=== PATIENT | male | born 1965 | race Caucasian/White ===

== ENCOUNTER 2018-05-04 17:53 | Observation (INO) | payer SELFPAY ==
[2018-05-04 18:29] LABS: #Basophils 0.1 thou/uL (0.0-0.2); #Eosinphils 0.5 thou/uL (0.0-0.7); #Lymphocytes 1.8 thou/uL (1.20-3.40); #Monocytes 0.6 thou/uL (0.11-0.59); #Neutrophils 6.1 thou/uL (1.40-6.50); %Basophils 0.9 % (0.0-1.0); %Eosinophils 5.9 % (0.0-10.0); %Lymphocytes 19.6 % (21.0-51.0); %Monocytes 6.1 % (0.0-10.0); %Neutrophils 67.5 % (42.0-75.0); Hemoglobin 15.8 g/dL (14.0-18.0); Mean Corpuscular HGB CONC 34.2 g/dL (32.0-36.0); Mean Corpuscular Volume 90.5 fL (78.0-98.0); Mean Platelet Volume 7.9 fL (7.4-10.4); Platelet Count 222 thou/uL (130-400); RBC Distribution Width 12.7 % (11.5-14.5); Red Blood Cell (RBC) Count 5.11 mill/uL (4.70-6.10)
[2018-05-04 18:51] LABS: ALT (SGPT) 28 U/L (8-55); AST (SGOT) 28 U/L (5-34); Albumin 4.4 g/dL (3.5-5.0); Alkaline Phosphatase 51 U/L (40-150); Anion Gap 18 mmol/L (10-20); BUN (Urea Nitrogen) 17 mg/dL (8.4-25.7); Bilirubin, Total 0.5 mg/dL (0.2-1.2); Calc. Creatinine Clearance 0 mL/min (70-130); Calcium 9.8 mg/dL (7.8-10.44); Carbon Dioxide 20 mmol/L (22-29); Chloride 106 mmol/L (98-107); Estimated GFR-MDRD 84; Globulin 2.8 g/dL (2.4-3.5); Glucose 128 mg/dL (70-105); Potassium 3.7 mmol/L (3.5-5.1); Protein, Total 7.2 g/dL (6.0-8.3); Sodium 140 mmol/L (136-145)
[2018-05-04 18:56] LABS: CKMB 5.3 ng/mL (0-6.6); Troponin I Less than 0.010 ng/mL (< 0.028)
[2018-05-04] MEDS ORDERED: Meclizine HCl 25 MG TAB ONE ×2 (19:33)
--- NOTE | 2018-05-04 21:18 | CT ---
HEAD CT WITHOUT CONTRAST: HISTORY: Dizziness. COMPARISON: None. FINDINGS: No parenchymal hemorrhage. No extraaxial hematoma. No midline shift. Basilar cisterns are patent. Brain volume is age appropriate. Cortical ruano white matter differentiation is preserved. Ventricles and sulci are patent and symmetric. Adequate aeration of the sinuses and mastoid air cells. The calvarium is intact. IMPRESSION: No intracranial posttraumatic sequelae. POS: [facility]
[2018-05-04] MEDS ORDERED: Lorazepam 2 MG/ML VIAL ONE (21:34)
[2018-05-04] MEDS ORDERED: Ondansetron PF 4 MG/2 ML Vial ONE (22:39)
[2018-05-05 00:42] VITALS: BMI 30.9
[2018-05-05] MEDS ORDERED: Sodium Chloride 0.9% 1,000 ML IV SCH (08:00)
--- NOTE | 2018-05-05 11:04 | ULT ---
ULTRASOUND CAROTID DOPPLER STANDARD BILATERAL: HISTORY: Stroke-like symptoms. COMPARISON: None. TECHNIQUE: Real-time, ruano scale, color Doppler, and spectral analysis of the extracranial carotid and vertebral arteries was performed. Mild atherosclerotic plaque. No elevated peak systolic velocities within the internal carotid arteri es. Antegrade flow of both vertebral arteries. IMPRESSION: No hemodynamically significant stenosis. POS: [facility]
--- NOTE | 2018-05-05 13:57 | MRI ---
BRAIN MRI WITHOUT IV CONTRAST: HISTORY: A 53-year-old male with a history of vertigo with nausea and vomiting, dizziness, history of hyperten maeve and high cholesterol. FINDINGS: There is no focal mass or midline shift. No intra- or extraaxial hemorrhage. There are mild sinus m ucosal changes, particularly in the ethmoid bullae. Normal expected flow voids are present. Small p unctate left periventricular old lacunar infarct. No evidence for acute infarct. IMPRESSION: Small old left periventricular lacunar infarct. NO mass or bleed. No evidence for acute infarct. POS: [facility]
[2018-05-05] MEDS ORDERED: Meclizine HCl 25 MG TAB PO SCH (14:00)
[2018-05-05 17:08] VITALS: BP 175/91; TEMP 98.3
[2018-05-05] MEDS ORDERED: Amlodipine 5 MG TAB PO SCH (17:45)
[2018-05-05] MEDS ORDERED: Simvastatin 20 MG TAB PO SCH (17:45)
[2018-05-05] MEDS ORDERED: Labetalol 100 MG TAB PO SCH (17:45)
[2018-05-06] MEDS ORDERED: Labetalol 100 MG TAB PO SCH (09:00)
[2018-05-06] MEDS ORDERED: Amlodipine 5 MG TAB PO SCH (09:00)
--- NOTE | 2018-05-06 11:34 | SS ---
DATE OF ADMISSION: 05/04/2018 DATE OF DISCHARGE: 05/05/2018 PRIMARY CARE PHYSICIAN: Dr. Quintero at the [facility]. CONSULTATIONS: None. DISCHARGE DIAGNOSES: 1. Vertigo. 2. Hypertension. 3. Hyperlipidemia. PROCEDURES: 1. The patient had a brain CT performed, which showed no intracranial posttraumatic sequelae. 2. The patient had a brain MRI that showed a small old left periventricular lacunar infarct. No mass or bleed, no evidence for an acute infarct. 3. The patient had a Doppler of his carotids performed, which showed no hemodynamically significant stenosis. HOSPITAL COURSE: The patient presented to the emergency room for evaluation of dizziness, nausea, and vomiting. The patient reported the room was spinning. He had some light sensitivity, intermittent abdominal pain, which was exacerbated by vomiting. The patient reports that he has had similar symptoms 5 days prior to the ER visit, but relieved when he sat still. He denies any chest pain at this time or any sensory changes. Denies any focal weakness. The patient does report a history of high blood pressure and high cholesterol. The patient was given some Zofran, some Ativan, and some meclizine while he was in the emergency room and he reports that he felt much better. The patient was admitted to the observation unit for further management. He received MRI of the brain and the carotid artery Doppler, which showed no evidence of any acute process. The patient received meclizine throughout the day and states that he felt much better, was able to walk, get up, go to the bathroom without any further dizziness. The patient desired to go home, so Dr. Mckeon consulted and agreed with plan. The patient was discharged to home and recommended to have an echocardiogram done on an outpatient basis. Smoking cessation counseling was done. REVIEW OF SYSTEMS: CONSTITUTIONAL: The patient denied chills, denied fever. EYES: Denied any eye pain, eye discharge, any vision changes. ENT: Denied any rhinorrhea, sore throat. Denied any sinus tenderness. CARDIOVASCULAR: Denied any chest pain, denied any palpitations. RESPIRATORY: Denies any shortness of breath. Denied any cough. GASTROINTESTINAL: Denied nausea and vomiting. GENITOURINARY: MALE: Denied any dysuria, hematuria, or any changes in urinary output. MUSCULOSKELETAL: Denies any back pain, denies any falls, trauma, injuries. Denies any neck pain. SKIN: Denied any rash or skin changes. NEUROLOGIC: Does report some dizziness with some light sensitivity, dizziness is worse with movement. HEME/LYMPHATIC: Denies any abnormal blood clotting. PHYSICAL EXAMINATION: CONSTITUTIONAL: Patient is alert and oriented to person, place and time. VITAL SIGNS: Temperature is 98.3, pulse is 87, respirations 16, and blood pressure 165/80. HEAD: Normocephalic, atraumatic. EYES: Pupils are equally round and reactive to light. Extraocular muscles are intact. Does have some mild horizontal nystagmus. ENT: Mouth exam is normal. Mucous membranes are moist. Teeth is normal. NECK: Normal range of motion. Trachea is midline. No tenderness. RESPIRATORY: Chest, no respiratory distress. Breath sounds are clear. CARDIOVASCULAR: Normal S1, S2. No abnormal heart sounds are heard. ABDOMEN: MALE: Abdomen is nontender. Bowel sounds are heard x4. BACK: Normal inspection. Normal range of motion. No tenderness. EXTREMITIES: Upper extremities, normal range of motion. Strength is normal. Sensation is intact bilaterally. Radial pulses normal bilaterally. Lower extremity, strength is normal bilaterally. Sensation intact bilaterally. Pedal pulse equal bilaterally. NEUROLOGIC: Patient is alert to person, place, and time. Speech is normal. Cranial nerves are intact. No focal sensory or motor deficits. SKIN: Normal, dry, normal in color. PSYCHIATRIC: Has normal affect. IMAGING DATA: EKG done in the emergency room shows a normal sinus rhythm beats per minute is 83. ST segments are normal, axis is normal. PAST MEDICAL HISTORY: Includes hyperlipidemia, high cholesterol, has had 2 cardiac stents, has had bilateral hip replacement. PAST SURGICAL HISTORY: Bilateral hip replacement. PSYCHIATRIC HISTORY: Anxiety, depression. SOCIAL HISTORY: The patient reports chronic alcoholism; however, he has been sober since October. The patient is a former drug user. He used opiates. Denies any use in the last couple of years. The patient currently uses tobacco, has smokes for the last 20 years. Smokes 1 pack a day. The patient lives at home. FAMILY HISTORY: Noncontributory. ALLERGIES: No known drug allergies. CURRENT MEDICATIONS: The patient has prescriptions for Norvasc 5 mg p.o. daily , folic acid 1 mg p.o. daily, labetalol 100 mg p.o. b.i.d., Protonix 40 mg p.o. daily, simvastatin 20 mg p.o. at bedtime. He was restarted on those medications , was added aspirin 1 p.o. daily, and meclizine 25 mg p.o. at bedtime. LABORATORY DATA: Lab work, pertinent, white blood cell count is 9.0, hemoglobin 15.8, hematocrit 46.3, and platelet count is 222. Creatinine is 0.94 , BUN is 17. Estimated GFR is 84. Sodium 140, potassium 3.7. Liver enzymes were unremarkable. CK-MB 53, troponin undetectable ASSESSMENT AND PLAN: The patient was in stable condition, discharged to home. Referral to follow up with Dr. Quintero within the next week. IVAND
--- NOTE | 2018-05-06 17:44 | PDOC.PN ---
- Subjective Encounter Start Date: 05/05/18 Encounter Start Time: 15:00 (late entry) Pt seen re: vertigo. feels better. - Objective Vital Signs & Weight: Weight Weight 228 lb 3 oz I&O: 05/05/18 05/06/18 05/07/18 06:59 06:59 06:59 Intake Total 120 1713 Output Total 550 400 Balance -430 1313 Result Diagrams: 05/04/18 18:19 05/04/18 18:19 Phys Exam - Physical Examination Constitutional: NAD HEENT: moist MMs Neck: supple Respiratory: clear to auscultation bilateral Cardiovascular: RRR Gastrointestinal: soft Neurological: moves all 4 limbs Psychiatric: normal affect Dx/Plan (1) Vertigo Code(s): R42 - DIZZINESS AND GIDDINESS Status: Acute Comment: likely peripheral, improving with meclizine - Plan * . Reviewed chart, saw patient. Collaborated with Alondra Combs [facility] [employer]. Agree with assessment and plan as documented. Review of Systems - Medications/Allergies Allergies/Adverse Reactions: Allergies Allergy/AdvReac Type Severity Reaction Status Date / Time No Known Drug Allergies Allergy Verified 05/05/18 00:45
[2018-05-06] MEDS ORDERED: Simvastatin 20 MG TAB PO SCH (21:00)
== END 2018-05-05 18:25 | disposition home or self-care (01) ==
LOC: ERS 17:53 → 2SE 22:50
PROVIDERS: ADMIT Hospitalist; ATTEND Hospitalist
DX: R42 Dizziness and giddiness (principal); F41.9 Anxiety disorder, unspecified; F32.9 Major depressive disorder, single episode, unspecified; F17.210 Nicotine dependence, cigarettes, uncomplicated; I10 Essential (primary) hypertension; E78.5 Hyperlipidemia, unspecified; Z79.899 Other long term (current) drug therapy; Z95.5 Presence of coronary angioplasty implant and graft
CPT/HCPCS: 36415; 70450; 70551; 80053; 82553; 84484; 85025; 93005; 93880; 96361; 96374; G0378; J2060; J2405